=== PATIENT | female | born 1940 | race Two or more races ===

== ENCOUNTER 2019-10-25 08:18 | Outpatient (CLI) | payer OTHER ==
[~2019-10-25 08:18] MED LIST: SYNTHROID50 MCG PO; VYTONE TP
== END 2019-10-25 09:12 | disposition home or self-care (01) ==
LOC: TOM 08:18
DX: K56.0 Paralytic ileus (principal); Z86.010 Personal history of colon polyps; K57.30 Diverticulosis of large intestine without perforation or abscess without bleeding; K63.5 Polyp of colon

== ENCOUNTER 2025-03-30 07:48 | Outpatient (CLI) | payer OTHER | END 2025-03-30 07:49 | disposition home or self-care (01) | LOC: NUCLEAR 07:48 | PROVIDERS: ATTEND Internal Medicine | DX: I65.29 Occlusion and stenosis of unspecified carotid artery (principal) ==